=== PATIENT | male | born 1960 | race Caucasian/White ===

== ENCOUNTER 2018-06-18 07:20 | Emergency (ER) | payer OTHER ==
[~2018-06-18] VITALS: Ht 172.7 cm; Wt 102.1 kg
[2018-06-18] MEDS ORDERED: FORTAMET1000 MG (07:35)
[2018-06-18] MEDS ORDERED: COZAAR50 MG (07:35)
[2018-06-18] MEDS ORDERED: TOPROL XL50 M1 (07:38)
[2018-06-18] MEDS ORDERED: ONGLYZA2.5 MG (07:40)
== END 2018-06-18 09:50 | disposition home or self-care (01) ==
LOC: ER 07:20
DX: K52.89 Other specified noninfective gastroenteritis and colitis (principal)

== ENCOUNTER 2018-07-05 17:17 | Emergency (ER) | payer OTHER ==
[~2018-07-05] VITALS: Ht 172.7 cm; Wt 100.2 kg
[~2018-07-05 17:17] MED LIST: COZAAR50 MG; FORTAMET1000 MG; ONGLYZA2.5 MG; TOPROL XL50 M1
== END 2018-07-05 19:11 | disposition home or self-care (01) ==
LOC: ER 17:17
DX: B34.9 Viral infection, unspecified (principal); J06.9 Acute upper respiratory infection, unspecified